=== PATIENT | female | born 2000 | race Asian ===

== ENCOUNTER 2022-07-31 21:31 | Inpatient (IN) | payer BC, SELFPAY ==
[2022-07-31 21:45] VITALS: BP 111/73; PULSE 97; RESP 16; TEMP 36.5; O2SAT 98
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
[2022-08-01 09:00] VITALS: BP 116/88; PULSE 80; RESP 16; TEMP 37.2; O2SAT 98
[2022-08-01] MEDS: buPROPion HCl XL 150 MG TAB.ER.24H PO (14:32)
[2022-08-01 14:36] VITALS: BMI 19.5
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
[2022-08-01 20:35] VITALS: BP 117/55; PULSE 84; RESP 16; TEMP 36.8; O2SAT 100
[2022-08-02 09:25] VITALS: BP 112/67; PULSE 83; RESP 18; TEMP 37.7; O2SAT 97
[2022-08-02] MEDS: buPROPion HCl XL 150 MG TAB.ER.24H PO (09:31)
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
--- NOTE | 2022-08-02 11:40 | PC.NURSE ---
Patient is discharged at this time. She denies ideation, plan or intent to harm self or others. She verbalizes understanding of the discharge plan including medications and appointments. She verbalizes understanding of how to access assistance in the case of crisis. She denies physical complaint
== END 2022-08-02 12:19 | disposition home or self-care (01) | DRG 751 ==
PROVIDERS: Admitting Provider Psychiatry & Neurology Psychiatry; Visit Provider Psychiatry & Neurology Psychiatry
DX: F33.9 Major depressive disorder, recurrent, unspecified (principal); R45.851 Suicidal ideations; F43.10 Post-traumatic stress disorder, unspecified; Z62.810 Personal history of physical and sexual abuse in childhood; Z91.410 Personal history of adult physical and sexual abuse